=== PATIENT | male | born 1995 ===

== ENCOUNTER → 2022-03-21 10:28 | Outpatient (CLI) | payer OTHER, SELFPAY ==
--- NOTE | 2022-03-21 | DI.CT.S_ITS ---
PROCEDURE: CT UE LT WO CON INDICATIONS: fracture of the lower end of left radius TECHNIQUE: Noncontrast 3 mm axial sections acquired of the left forearm, with coronal and sagittal reformats. COMPARISON: [facility] Outside Film, CR, XR WRIST 3+ VIEWS LEFT, 03/13/2022, 8:34. [facility] Outside Film, CR, XR WRIST 3+ VIEWS LEFT, 03/06/2022, 8:03. [facility] Outside Film, CR, XR FOREARM LEFT, 03/13/2022, 8:39. FINDINGS: Image quality: Excellent. Bones: As seen on prior radiograph, there is a severely comminuted and impacted fracture involving distal radius with fracture line extending to radiocarpal joint space and up to 1.6 cm overlapping at fracture site. There is dorsal and lateral displacement of the radial styloid fragment. There is also mild dorsal and medial displacement of a smaller fractured fragment. Slightly displaced fracture involving ulnar styloid is also seen. No other fracture or dislocation is seen. Soft tissues: There is soft tissue swelling surrounding distal radial and ulnar fracture sites. No significant joint effusion or gross intra-articular loose bodies. No gross full-thickness wrist tendon rupture. IMPRESSION: 1. Severely comminuted and impacted distal radial intra-articular fracture as described in detail above. 2. Slightly displaced ulnar styloid fracture. 3. Mild wrist soft tissue swelling. No significant joint effusion or intra-articular loose bodies. Dictated by: Pj Yoo M.D. on 03/21/2022 at 11:16 Approved by: Pj Yoo M.D. on 03/21/2022 at 11:27
== END ==
PROVIDERS: PCP Family Medicine; Referring Provider Orthopaedic Surgery; Visit Provider Orthopaedic Surgery
DX: S52.572A Other intraarticular fracture of lower end of left radius, initial encounter for closed fracture (principal); S52.612A Displaced fracture of left ulna styloid process, initial encounter for closed fracture; X58.XXXA Exposure to other specified factors, initial encounter
CPT/HCPCS: 73200

== ENCOUNTER 2022-03-21 10:31 | Day surgery (SDC) | payer OTHER, SELFPAY ==
[2022-03-20 10:48] VITALS: BMI 28.7
[2022-03-21] VITALS (13 sets, daily range): BP systolic 115–144; BP diastolic 59–84; PULSE 65–111; RESP 14–26; TEMP 36.7–37.4; O2SAT 91–98; BMI 28.7
[2022-03-21 12:55] LABS: COVID19 -Nasal RAPID Negative (Negative)
[2022-03-21] MEDS: LACTATED RINGERS 1,000 ML 42 ML IV (13:12)
--- NOTE | 2022-03-21 13:13 | PM.PREOP ---
Pre-operative Note Interval Note History & Physical reviewed/Exam performed by Physician: Yes Changes to H&P: No
--- NOTE | 2022-03-21 14:41 | SUR.OPER ---
Supine on padded OR bed, head on pillow, arms secured on padded arm boards at <90 degrees abduction, legs uncrossed, safety belt at thigh, tape over blanket over lower legs.
[2022-03-21] MEDS: CEFAZOLIN 2 GM/100 ML PREMIX 100 ML IV (15:10)
[2022-03-21] MEDS: BUPIVACAINE 0.25% (PF) 30 ML, EPINEPHrine 0.15 MG INJ (16:26)
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
[2022-03-21] MEDS: OXYCODONE IR 5 MG TABLET PO ×2 (18:31→19:04)
--- NOTE | 2022-03-21 19:42 | SUR.PHASEII ---
Pt nerve block for left arm placed by Dr Pugh at 1910. Tme out performed ERIK Kyle and ERIK Medina at bedside. Placed by ultra sound, image saved and placed in chart. Procedure done at 1920, pt vital signs stable throughout procedure.
== END 2022-03-21 20:03 | disposition home or self-care (01) ==
PROVIDERS: PCP Family Medicine; Referring Provider Orthopaedic Surgery; Visit Provider Orthopaedic Surgery
PROC: (CPT 25609; principal; 2022-03-21 14:00)
DX: S52.612A Displaced fracture of left ulna styloid process, initial encounter for closed fracture (principal); S52.572A Other intraarticular fracture of lower end of left radius, initial encounter for closed fracture; V19.3XXA Pedal cyclist (driver) (passenger) injured in unspecified nontraffic accident, initial encounter; Y93.55 Activity, bike riding; Z20.822 Contact with and (suspected) exposure to COVID-19; X58.XXXA Exposure to other specified factors, initial encounter
CPT/HCPCS: 25609; 25652; 73200; 87635; J0171; J0690; J1100; J1170; J1885; J2250; J2405; J2704; J3010

== ENCOUNTER 2023-10-25 07:32 | Day surgery (SDC) | payer OTHER, SELFPAY ==
[2023-10-23 15:19] VITALS: BMI 28.1
[2023-10-25] MEDS: SCOPOLAMINE 1 PATCH TOP (08:15)
[2023-10-25] MEDS: LACTATED RINGERS 1,000 ML 42 ML IV (08:15)
--- NOTE | 2023-10-25 08:26 | PM.PREOP ---
Pre-operative Note Interval Note History & Physical reviewed/Exam performed by Physician: Yes Changes to H&P: No
--- NOTE | 2023-10-25 08:27 | P.OP_ITS ---
Operative Date/Time/Diagnoses Date of procedure: 10/25/23 Time of procedure: 10:13 Pre-op diagnosis: Nasal airway obstruction, septal deviation, inferior turbinate hypertrophy Post-op diagnosis: same Procedure & Clinicians Procedure: 1. Septoplasty 2. Bilateral inferior turbinate reduction via intramural cautery Same procedure as scheduled: Yes Indications: 28 Year old with the above diagnoses incompletely managed with medical therapy presents for the above procedure. Following discussion of the material risks benefits complications and alternatives, the patient elected to proceed. Surgeon: Michael Laboy Click Yes if Unassisted: Yes Anesthesia Type: General and Local Operative Notes Findings: 2 to 3+ left septal deviation, convoluted posteriorly with bilateral obstruction, [id number]-left inferior turbinate hypertrophy. Caudal strut not manipulated. Estimated Blood Loss (mL): 50 Procedure in detail: Following identification and confirmation of consent as well as preoperative Afrin nasal spray, the patient was brought to the operating room suite and placed in the supine position. General endotracheal anesthesia was administered. I infiltrated the septum widely bilaterally with 1% lidocaine 1 100,000 epinephrine followed by temporary packing with cotton with Afrin and 4% lidocaine. Following sterile prep and drape, the packing was removed and I performed a right sammie-transfixion incision, elevated the right mucoperichondrial and mucoperiosteal flap. I disarticulated near the bony/cartilaginous junction and elevated the left mucoperiosteal flap. Deviated portions of the perpendicular plate of the ethmoid and vomer were resected. The residual quadrilateral cartilage was further straightened by trimming it inferiorly as well as reducing the maxillary crest. A 2 mm strip of cartilage paralleling the residual 1 cm dorsal strut was resected to further straighten the quadrilateral cartilage. The hemitransfixion incision was closed with interrupted 5 0 chromic followed by a running 4 0 plain gut mattress suture to reapproximate the septal flaps. At case completion, 20/1000th of an inch silastic splints were placed bilaterally, sutured anteriorly with a single 4 0 nylon. The head of each inferior turbinate had been previously infiltrated with additional local anesthetic and a 25 gauge spinal needle was used to impale the length of the turbinate, with cautery on a setting of 15 activated on slow withdrawal over 2 passes. The turbinates were then outfractured. The procedure completed, sponge and needle counts were correct and the patient was extubated in the operating room and taken to recovery room in stable condition without known complication. Postoperative care: Nasal saline every hour while awake, Vaseline or Polysporin to the nostrils at all times, begin irrigations t.i.d. beginning pod 1. Humidifier at the bedside blowing on the face. Tylenol alternating with Advil for pain control, oxycodone if necessary for breakthrough pain. Complications: none Post-operative Condition: stable Disposition: same day surgery Plan for aftercare: Nasal saline every hour while awake, begin irrigations t.i.d. tomorrow if de sired. Polysporin to the nostrils at all times, Tylenol alternating with Advil for pain control, oxycodone for breakthrough pain. Elevate head of bed, no nose blowing, no straining for 2 weeks. Ice directly under the nose on the upper lip has tolerated 24-48 hours at a minimum. Follow-up in 1 week for nasal splint removal.
[2023-10-25] MEDS: ACETAMINOPHEN 325 MG TABLET 975 MG PO (08:31)
[2023-10-25] MEDS: OXYMETAZOLINE NASAL SPRAY 30 ML 2 SPRAYS NASAL ×2 (08:32→09:02)
[2023-10-25 08:33] VITALS: BP 118/80; PULSE 68; RESP 18; TEMP 37.2; O2SAT 98; BMI 28.1
[2023-10-25] MEDS: LIDOCAINE 4% SOLN 50 ML 20 ML TOP (08:53)
--- NOTE | 2023-10-25 08:53 | SUR.OPER ---
Supine on padded OR bed, head on pillow, arms padded and tucked at sides, legs uncrossed, safety belt at thigh, tape over blanket over lower legs .
[2023-10-25] MEDS: LIDOCAINE 1% W/EPI 20 ML INJ (09:00)
[2023-10-25] MEDS: BACITRACIN OINT 0.9 GM PCKT 1 APPLIC TOP (09:03)
[2023-10-25 10:21] VITALS: BP 129/96; PULSE 81; RESP 16; TEMP 36.6; O2SAT 95
[2023-10-25 10:26] VITALS: BP 136/96; PULSE 76; RESP 15; O2SAT 95
[2023-10-25 10:31] VITALS: BP 129/91; PULSE 74; RESP 14; O2SAT 95
[2023-10-25] MEDS: OXYCODONE IR 5 MG TABLET PO (10:38)
[2023-10-25 10:40] VITALS: BP 131/81; PULSE 86; RESP 14; O2SAT 94
== END 2023-10-25 11:08 | disposition home or self-care (01) ==
PROVIDERS: PCP Family Medicine; Referring Provider Otolaryngology; Visit Provider Otolaryngology
PROC: (CPT 30520; principal; 2023-10-25 08:45)
DX: J34.89 Other specified disorders of nose and nasal sinuses (principal); J34.2 Deviated nasal septum; J34.3 Hypertrophy of nasal turbinates
CPT/HCPCS: 30520; 30802; J1100; J2250; J2405; J2704; J3010